=== PATIENT | female | born 1970 | race Caucasian/White ===

== ENCOUNTER → 2016-11-30 | Outpatient (CLI) | payer BC ==
--- NOTE | 2016-11-30 13:06 | KCIC ---
CHEST PA LATERAL History: Shortness of breath, severe cough for 11 days, bronchitis Comparison: None. Findings: There is no infiltrate, pneumothorax, or effusion. The cardiac silhouette is within normal limits in size. There are some calcified granulomas of the mid left hemithorax Impression: 1. There is no evidence of acute cardiopulmonary disease. 2. There are some calcified granulomas of the mid left hemithorax. Electronically signed by: Julien Bhandari MD (11/30/2016 1:03 PM) [id number]
== END | disposition home or self-care (01) ==
LOC: KCIC 11:32
PROVIDERS: ATTEND Family Medicine
DX: J40 Bronchitis, not specified as acute or chronic (principal)
CPT/HCPCS: 71020

== ENCOUNTER → 2018-04-19 | Outpatient (CLI) | payer BC ==
--- NOTE | 2018-04-19 17:32 | KCIC ---
Bilateral digital screening mammograms: Reason for examination: Routine screening. Comparison is made to previous studies dated 01/23/2016 and 09/12/2013. Interpretation was made with the benefit of CAD. The skin and nipples show no abnormalities. No abnormal axillary lymph nodes are seen. The breast parenchyma shows scattered fibroglandular density. (Breast density: Category B.) There are no dominant masses, suspicious calcifications or architectural distortions. Impression: No evidence of malignancy. Recommend routine screening. BI-RADS Category 1: Negative. "Our facility is accredited by the [employer] Mammography [employer]." This patient's information has been entered into a reminder system for the patient to be notified with the results of her examination and a target date for the next mammogram. Electronically signed by: Nidia Fields MD (04/19/2018 5:28 PM) [id number]
== END | disposition home or self-care (01) ==
LOC: KCIC MAMMO 09:34
PROVIDERS: ATTEND Obstetrics & Gynecology
DX: Z12.31 Encounter for screening mammogram for malignant neoplasm of breast (principal)
CPT/HCPCS: 77067

== ENCOUNTER → 2019-05-11 | Outpatient (CLI) | payer BC ==
--- NOTE | 2019-05-14 17:05 | KCIC ---
BILATERAL SCREENING MAMMOGRAM History: Routine screening. Comparison: Bilateral mammogram 04/19/2018 and dating back to 2013. Technique: Routine bilateral digital mammogram views were obtained. Findings: Breast Tissue Density B : There are scattered areas of fibroglandular density. There are no dominant masses, suspicious microcalcifications, or architectural distortion. IMPRESSION: No mammographic evidence of malignancy. Recommend routine screening. BI-RADS category 1: Negative. The images were reviewed with computer aided detection. Patient information is entered into the reminder system with a target due date for the next screening mammogram. Mammography is the most sensitive method for finding small breast cancers, but it does not detect them all and is not a substitute for careful clinical examination. A negative mammogram does not negate a clinically suspicious finding and should not result in delay in biopsying a clinically suspicious abnormality. "Our facility is accredited by the [employer] Mammography [employer]." Electronically signed by: Remigio Cabrera MD (05/14/2019 5:02 PM) [id number]
== END | disposition home or self-care (01) ==
LOC: KCIC MAMMO 15:13
PROVIDERS: ATTEND Obstetrics & Gynecology
DX: Z12.31 Encounter for screening mammogram for malignant neoplasm of breast (principal)
CPT/HCPCS: 77067

== ENCOUNTER → 2019-05-22 | Outpatient (CLI) | payer BC ==
--- NOTE | 2019-05-22 15:48 | KCIC ---
EXAM: Bilateral knees, 3 views; bilateral hands, 3 views. HISTORY: Neck pain. COMPARISON: None. FINDINGS: Bilateral knees: 3 views of both knees are obtained. There is no fracture, dislocation or subluxation. There is no joint effusion. There is a tiny benign bone island within the left lateral femoral condyle. Bilateral hands: 3 views of both hands are obtained. There is no fracture, dislocation or subluxation. IMPRESSION: No acute osseous finding. Electronically signed by: Elizabteh Goyal MD (05/22/2019 3:45 PM) [place] [id number]
== END | disposition home or self-care (01) ==
LOC: KCIC 14:51
PROVIDERS: ATTEND Family Medicine
DX: G89.29 Other chronic pain (principal); M79.642 Pain in left hand; M79.641 Pain in right hand; M54.2 Cervicalgia
CPT/HCPCS: 73130; 73562

== ENCOUNTER → 2020-08-04 | Outpatient (CLI) | payer BC ==
--- NOTE | 2020-08-04 10:08 | KCIC ---
Bilateral digital screening mammograms: Reason for examination: Routine screening. Comparison is made to previous studies dated back to 01/23/2016. Interpretation was made with the benefit of CAD. The skin and nipples show no abnormalities. No abnormal axillary lymph nodes are seen. The breast par enchyma shows scattered fibroglandular density. (Breast density: Category B.) There are no dominant m asses, suspicious calcifications or architectural distortions. Impression: No evidence of malignancy. Recommend routine screening. BI-RADS Category 1: Negative. "Our facility is accredited by the [employer] Mammography [employer]." This patient's information has been entered into a reminder system for the patient to be notified wit h the results of her examination and a target date for the next mammogram. Electronically signed by: Nidia Fields MD (08/04/2020 10:06 AM) [id number]
== END ==
LOC: KCIC MAMMO 07:59
PROVIDERS: ATTEND Family Medicine
DX: Z12.31 Encounter for screening mammogram for malignant neoplasm of breast (principal)
CPT/HCPCS: 77067

== ENCOUNTER → 2021-10-02 | Outpatient (CLI) | payer BC ==
--- NOTE | 2021-10-02 16:27 | KCIC ---
XR FOOT_RIGHT 3 VIEWS DATE: 10/02/2021 12:51 PM INDICATION: RIGHT FOOT PAIN X'S 1 YR, NKI COMPARISON: None. FINDINGS: Bones: There is no evidence of acute fracture or dislocation. Elongated anterior process of the calca neus. Elongated lateral navicular. Joints: Sclerotic narrowed calcaneonavicular joint Miscellaneous: None. 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 Electronically signed by: Julien Ramires MD (10/02/2021 4:24 PM) [id number]
--- NOTE | 2021-10-02 16:32 | KCIC ---
XR LUMBAR SPINE 2-3V DATE: 10/02/2021 12:51 PM INDICATION: CHRONIC MID LBP, NKI COMPARISON: None. FINDINGS: Five non-rib bearing lumbar-type vertebral bodies are present. Bones/Alignment: No evidence of acute compression fracture. There is no listhesis. Joints: Mild degenerative disc disease. Miscellaneous: None. IMPRESSION: Mild degenerative disc disease. Electronically signed by: Julien Ramires MD (10/02/2021 4:30 PM) [id number]
== END ==
LOC: KCIC 12:47
PROVIDERS: ATTEND Family Medicine
DX: M51.36 Other intervertebral disc degeneration, lumbar region (principal); G57.91 Unspecified mononeuropathy of right lower limb; M79.671 Pain in right foot
CPT/HCPCS: 72100; 73630